=== PATIENT | male | born 1980 | race Caucasian/White ===

== ENCOUNTER 2021-04-14 07:30 | Day surgery (SDC) | payer BC ==
[2021-04-14] MEDS ORDERED: Lactated Ringers 1,000 ML IV SCH (08:00)
[2021-04-14] MEDS ORDERED: Nozin Nasal Sanitizer NASBOTH ONE (08:00)
[2021-04-14] MEDS ORDERED: ceFAZolin 2 GM in Premix Bag 1 BAG IV ONE (08:30)
[2021-04-14] MEDS ORDERED: Bupivacaine 0.5% 50 ML MDV ONE (09:43)
[2021-04-14] MEDS ORDERED: fentaNYL 250 MCG/5 ML SDV ONE ×2 (09:49→10:02)
[2021-04-14] MEDS ORDERED: Neostigmine Methylsulfate 1 MG/ML 5 ML Syringe ONE (09:50)
[2021-04-14] MEDS ORDERED: Rocuronium 50 MG/5 ML Vial ONE (09:50)
[2021-04-14] MEDS ORDERED: Dexamethasone 4 MG/ML SDV ONE (09:50)
[2021-04-14] MEDS ORDERED: Glycopyrrolate 0.2 MG/ML 5 ML MDV ONE (09:50)
[2021-04-14] MEDS ORDERED: Succinylcholine 200 MG/10 ML MDV ONE (09:50)
[2021-04-14] MEDS ORDERED: Propofol 200 MG/20 ML SDV ONE (09:50)
[2021-04-14] MEDS ORDERED: Ondansetron 4 MG/2 ML SDV ONE (09:50)
[2021-04-14] MEDS ORDERED: Lactated Ringers 1,000 ML ONE (11:24)
[2021-04-14] MEDS ORDERED: Acetaminophen/HYDROcodone 325-5 MG Tab PO PRN (12:41)
--- NOTE | 2021-04-16 22:21 | OR ---
DATE OF PROCEDURE: 04/14/2021 SURGEON: Rolando Bernal MD PREOPERATIVE DIAGNOSES: 1. Left knee chondromalacia of patella. 2. Patella instability with history of dislocation. POSTOPERATIVE DIAGNOSES: 1. Chondromalacia of patella, grade 3. 2. Patella instability with history of dislocation. PROCEDURE: 1. Arthroscopy, left knee, with chondroplasty of patella and arthroscopic lateral release. 2. Open medial patellofemoral ligament reconstruction utilizing tendon allograft. CUSTOMER LEADER: SUNG Serrano ANESTHESIA: General. INDICATIONS: Anastacio is a 40-year-old gentleman with a history of injury to his left knee as a teenager with dislocation. This was treated conservatively. He has had some difficulty with it off and on throughout the years and recently sustained a dislocation resulting in increased instability. Also experiencing some catching and grinding consistent with articular cartilage damage in the patellofemoral joint. Now, presents to the operating room for arthroscopic evaluation of the knee, particularly the patellofemoral joint and chondroplasty as necessary. Plan is a lateral release and open medial patellofemoral ligament reconstruction for the patella instability. Risks, benefits, potential complications were discussed. First assistance services of [employer], were utilized during the course of the procedure for leg positioning, assistance with exposure, passage of the graft, etc. PROCEDURE IN DETAIL: After adequate anesthesia was obtained, the patient was placed supine with a tourniquet about the left upper thigh. Left leg was prepped and draped in a sterile fashion. Leg was exsanguinated and tourniquet inflated to 300 mmHg pressure. Standard inferior, medial, and lateral portals were established and the scope was introduced. Patella was evaluated showing areas of grade 2 and grade 3 chondromalacia behind a fairly large plica which initially obscured a view of a portion of the patella. Shaver was introduced and the plica was excised, allowing better visualization of the patella. It showed again primarily grade 2 and area of grade 3 chondromalacia more onto the lateral facet. Trochlear groove intact with some very minor and fissuring. Medial and lateral menisci were intact as was the articular cartilage in the medial and lateral compartments. ACL and PCL were intact. Multiple small flakes of loose articular cartilage were present throughout the joint and these were removed with shaver. The tracking of the patella was evaluated and it showed significant lateral overhang and instability laterally. A hooked radiofrequency ablation wand was utilized and a lateral release was done under visualization of the scope. This significantly improved tracking, but continued to have lateral instability. The knee was drained, scope was withdrawn. A small incision was made over the medial border of the patella, carried down through the subcutaneous tissues. The superficial layer of the capsular attachment was incised along the medial patella. Rongeur was used to expose the medial portion of the bone. Separate incision was made over the medial epicondyle. It was carried through the subcutaneous tissues and blunt dissection carried down to the adductor tubercle. Soft tissue tunnel was then developed between the two incisions, taking care to stay superficial to the joint capsule. Guidewire was drilled in the central portion of the patella from medial and out the skin laterally. This was drilled with a 5.5 reamer to a depth of approximately 10 mm. A tendon allograft was prepared on the back table with a whipstitch on one end and this could easily fit through a 5.5 diameter tunnel. The ends of the whipstitch were placed into the eyelet in the guide pin and used to pull the suture through the patella and out the skin laterally. Tendon graft was then pulled snug into the patellar tunnel and secured with a 5 mm Donna interference screw. This was buried flush to the level of the bone. The other end of the graft was then passed through the tunnel to the medial incision. Length of the graft was measured and cut and a whipstitch placed in the end of the graft. A guide pin was then placed just adjacent to the adductor tubercle and the epicondyle in area of isometry for the medial patellofemoral ligament. This was drilled at an angle superiorly and laterally and out the skin laterally. Reamer was then placed over this and drilled to a depth of 20 mm. Ends of the whipstitch were placed in the eyelet of the guide pin and used to pull the sutures through the bone tunnel and out the skin laterally. This was then used to guide the graft into the tunnel. With the leg positioned on a small bolster at approximately a 30 degrees angle, the graft was pulled into the tunnel to remove any slack, but without any tension. With the graft held in this position, the tension on the graft and the patella stability was evaluated and found to be quite good. Maintaining tension in this position, a guidewire was placed into the femoral tunnel and a second Donna interference screw was placed securing the second limb of the graft. Guide pin was removed. The knee was taken through range of motion and the patella tracking and stability were found to be quite good. A #1 Vicryl was used to close the capsule, medial parapatellar incision, and this closure incorporated stitch through the graft. The medial incision was closed in a similar fashion with #1 Vicryl in the deep layer. The skin was closed with 2-0 Vicryl and a running 3-0 Monocryl. The arthroscopic port sites were closed with Monocryl. Steri-Strips were applied. All incisions were infiltrated with 0.5% Marcaine and a sterile dressing was placed. A light compressive wrap was placed with a hinged knee brace. The patient tolerated procedure well. There were no complications. Taken from the operating room in stable condition. Rolando Bernal MD /[id number]
== END 2021-04-14 15:05 | disposition home or self-care (01) ==
LOC: JP.SDS 07:30
PROVIDERS: ATTEND Specialist
DX: M22.42 Chondromalacia patellae, left knee (principal); M25.362 Other instability, left knee; F41.9 Anxiety disorder, unspecified; E66.01 Morbid (severe) obesity due to excess calories; Z79.899 Other long term (current) drug therapy; Z68.42 Body mass index [BMI] 45.0-49.9, adult
CPT/HCPCS: 27427; 29877; 36415; 80053; 85027; A9270; C1713; J0330; J0690; J1100; J2405; J2704; J2710; J3010; J3490; J7120

== ENCOUNTER 2021-07-16 17:55 | Emergency (ER) | payer OTHER, BC | END 2021-07-16 19:10 | disposition home or self-care (01) | LOC: JP.ED 17:55 | DX: S60.211A Contusion of right wrist, initial encounter (principal); K21.9 Gastro-esophageal reflux disease without esophagitis; E66.9 Obesity, unspecified; Z68.42 Body mass index [BMI] 45.0-49.9, adult; W01.0XXA Fall on same level from slipping, tripping and stumbling without subsequent striking against object, initial encounter | CPT/HCPCS: 73110-26-RT; 73110-RT; 99282; 99283-25 ==